=== PATIENT | male | born 1935 | race Asian ===

== ENCOUNTER 2017-08-09 20:22 | Emergency (ER) | payer OTHER, MEDICARE ==
[2017-08-09 21:00] LABS: % BASOPHILS 1.2 % (0.0-2.0); % EOSINOPHILS 5.5 % (0.0-5.0); % LYMPHOCYTES 26.8 % (20.0-50.0); % MONOCYTES 3.6 % (2.0-10.0); % NEUTROPHILS 62.9 % (40.0-80.0); BASOPHILE ABSOLUTE 0.1 Th/cumm (0-0.2); EOSINOPHILE ABSOLUTE 0.5 Th/cmm (0.1-0.4); HEMATOCRIT 40.4 % (41.0-60); HEMOGLOBIN 13.6 gm/dL (12-16); LYMPHOCYTE ABSOLUTE 2.2 Th/cmm (1.5-3.0); MEAN CELL VOLUME 99.7 fl (80-99); MEAN CORPUSCULAR HEMOGLOBIN 33.5 pg (27.0-31.0); MEAN CORPUSCULAR HGB CONC 33.6 pg (28.0-36.0); MEAN PLATELET VOLUME 8.5 fl; MONOCYTE ABSOLUTE 0.3 Th/cmm (0.3-1.0); NEUTROPHILE ABSOLUTE 5.1 Th/cmm (1.8-8.0); PLATELET COUNT 161 Th/cmm (150-400); RED BLOOD COUNT 4.06 Mil/cmm (3.80-5.80); RED CELL DISTRIBUTION WIDTH 14.3 % (11.5-20.0); WHITE BLOOD COUNT 8.2 Th/cmm (4.8-10.8)
[2017-08-09 21:14] LABS: CHOLESTEROL 197 mg/dL (<200); HDL -HIGH DENSITY LIPOPROTEIN 65 mg/dL (23-92); TRIGLYCERIDES 186 mg/dL (<150)
[2017-08-09] MEDS ORDERED: Sodium Chloride 0.9% 500 ML IV ONE (21:22)
--- NOTE | 2017-08-09 22:13 | ER Physician Documentation ---
DATE OF SERVICE: 08/09/2017 EMERGENCY ROOM EVALUATION AND TREATMENT This is an 82-year-old male patient who is a patient of Dr. Ndiaye, he is my friend. He works at [employer], [place]. We have been friends and we studied together in [place], but the patient was under his care. The patient has been on various medications. The is bringing the medication. The patient was going up, took diuretic pill Lasix, furosemide and he took it last night to pee. He had a bowel movement also. He had also glass of red wine yesterday and then today he again took some half a glass of red wine and then he was climbing stairs. He felt dizzy, almost blacked out. He called his . He did not hurt himself. 911 was called and the patient was brought to the Emergency Room. HISTORY OF PRESENT ILLNESS: The patient is known to have coronary artery disease. 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 I do not get the EKG as yet. She will be doing it pretty soon. The patient has heart disease. The patient had myocardial revascularization surgery. The patient's current medications include at least the one they told me included amlodipine 5 mg a day. He takes Lasix once a day, he takes pravastatin 40 mg once a day and he takes some other medications. Once I get it, I will let him know. Previous surgeries include history of transurethral resection of the prostate. 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 He had myocardial revascularization surgery for 5-vessel done on the left side of the heart. He said he had heart surgery done also. He had some cataract surgery done in the past. REVIEW OF SYSTEMS: EYES: No history of double vision, blurring, blindness. He had bilateral cataract surgery done. No history of any glaucoma. CENTRAL NERVOUS SYSTEM: No history of TIA, stroke, encephalitis, meningitis. PULMONARY: No history of pneumonia, TB, pulmonary embolism, COPD, emphysema, bronchitis. BONES AND JOINTS: No apparent complaints except for minor degenerative joint disease. ENDOCRINE: No history of diabetes mellitus. No history of hypo or hyperthyroidism, history of hypercholesterolemia is present. GI: No history of any peptic ulcer disease, inflammatory bowel disease, diarrhea or constipation. GENITOURINARY: No burning, frequency, dysuria, but he has chronic kidney disease. His creatinine is 1.5. His BUN is 20. PAST MEDICAL HISTORY: Hypertension, heart disease, hypercholesterolemia, prostate cancer. He had TURP, cataract surgery. Prostate was removed in the past. PERSONAL HISTORY: The patient is , has 2 sons, 2 daughters, one . ALLERGIES: None known. PHYSICAL EXAMINATION: VITAL SIGNS: The patient's triage nurse took the vital signs showing temperature 96.2, pulse of 51, respirations of 18, blood pressure 124/44, saturation of 100%. Height of 5 feet 5 inches, weighing 155 pounds. Vaccination is unknown. GENERAL: The patient appears to be awake, alert, oriented, not in any acute cardiorespiratory distress. Conjunctivae are pink, sclerae are white. HEENT: Normal. The patient has bilateral arcus senilis is noted, some slight colored discoloration on the cornea is noted on the left eye and slight on the right eye is noted, but his vision seems to be good. He has a cataract surgery done perhaps with lens implantation. General examination otherwise benign and negative. Peripheral pulses appears to be normal. No meningeal signs present. No evidence of any DVT, cyanosis, petechia, ecchymosis. CHEST: Clear. No rales, rhonchi, or bronchial breathing. ABDOMEN: Soft, benign and negative. Liver, spleen is not enlarged. There are no free fluid in the abdominal cavity. In the lower abdomen, there is a vertical scar of previous cholecystectomy present. Central nervous system is grossly within normal limits. heart reveals a midline CABG scar. S1, S2 are normal. Fourth heart sound is present. Second heart sound physiologically split. Third heart sound is absent. EKG is not yet done. I will look at it. CLINICAL IMPRESSION: 1. The patient had an episode of syncope, most likely the patient had hypovolemic syncope and vasovagal attack the patient might have had and perhaps the patient is taking medications like amlodipine and diuretics and took alcohol and so he must have a combination of all these factors must have given this patient the symptoms. We will check blood pressure and then I will give him some fluids. 2. The patient had vasovagal attack. 3. The patient has atherosclerotic heart disease. 4. The patient has myocardial revascularization surgery almost few years ago. 5. History of cancer of the prostate with history of radical prostatectomy done in the past. Outpatient EKG was just done showing small inferior wall nondiagnostic Q waves and anterior wall T waves are seen, inverted in V1 and V2 and slight ST elevation, so we will get the BNP level and troponin level has been ordered. Otherwise, it is within normal limits. OTHER DIAGNOSES: Includes hypercholesterolemia. The patient has had bilateral cataract surgery done, prostate cancer done. History of hypertension. The patient is a full code and allergic to penicillin was noted. JOB# [id number]
--- NOTE | 2017-08-09 22:32 | Transfer Summary ---
DATE OF TRANSFER: 08/09/2017 ADDENDUM Full code patient. The patient is an 82-year-old male patient. The patient was brought to the hospital with postural hypotension and the patient's blood pressure was 58, presyncope and immediately the blood pressure came up and the patient was brought over here. When he was brought over here, his heart rate was in 50s. The patient did not have any heart blocks. EKG did not show any myocardial infarction, some nonspecific ST-T changes were seen. We got some labs done. We got the postural blood pressure checked up also, there was no evidence of any postural hypotension detected. The patient's lab was done, which showed white count of 8.2, hemoglobin 13.6, hematocrit 40.4 and platelet count 161, eosinophil 5.5, magnesium 2.2. Troponin is 0.01. Triglycerides 186, cholesterol 197, LDL 112, HDL is 65. Postural hypotension reading was done, the lying blood pressure was 121/45 and standing blood pressure was 126/48 and the patient now sitting, is 109/55. The patient is getting IV fluids. The patient does not have any acute myocardial infarction. The patient will be discharged home in about a few minutes. IV fluids is wide open. The patient will go back to Dr. Vasquez, his physician at [facility]. I know all of them, did work over there. 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 EKG showed normal sinus rhythm and maybe old inferior wall MA, T-wave inversions in V1 and V2, but there is no myocardial infarction. In conclusion, the patient has benign postural hypotension, most likely secondary to the effect of taking diuretics prostate and taking Lopressor, taking losartan 100 mg and taking Lopressor tablet 100 mg tablets, so lots of medications, not drinking enough fluid. The patient drinking alcohol yesterday and this morning also, again gave rise to the symptoms, so the patient will be discharged for home. FINAL DIAGNOSES: 1. Vasovagal attack, postural hypotension. 2. Atherosclerotic heart disease. 3. History of myocardial revascularization surgery. 4. History of bilateral cataract surgery. 5. History of cancer of the prostate surgery done in the past. 6. Hypercholesterolemia. 7. Arcus senilis seen in the past. 8. History of dyslipidemia. The patient might need different kind of medication because the patient had LDL level elevated as well as triglyceride levels were also elevated. Magnesium level was found to be normal, 2.2. On examination, there was no evidence of any congestive heart failure. Troponin, etc. was within normal limits. So the patient is discharged. Discharge instructions were given to the patient. LDL level was high and the patient's triglycerides were 186, so the patient might need Lipitor or Crestor tablet 40 mg once a day, but he gets some aches and pains, but I would leave this to Dr. Vasquez, his own doctor. JOB# [id number]
--- NOTE | 2017-08-10 07:35 | Diagnostic Imaging Report ---
CHEST X-RAY: AP view INDICATION: Pain, enlarged heart, rule out CHF COMPARISON: None FINDINGS: There is evidence of prior median sternotomy. There is elevation of the right hemidiaphragm. Increased interstitial lung markings are noted with no focal consolidation, gross pleural effusion or evidence of francois CHF. Left basal density is likely due to superimposition of soft tissue structures. Heart size is mildly prominent. Degenerative changes of the spine are noted. There is old fracture of the left third rib possibly related to old surgery or old trauma. IMPRESSION: Left basal hazy density probably related to superimposition of soft tissue structures. No focal consolidation identified. If indicated, lateral views may also be obtained for further assessment. Increased interstitial lung markings likely chronic in etiology. Evidence of prior median sternotomy Mild cardiomegaly.
== END 2017-08-09 22:07 | disposition home or self-care (01) ==
LOC: ER 20:22
DX: R55 Syncope and collapse (principal); I25.10 Atherosclerotic heart disease of native coronary artery without angina pectoris; E78.5 Hyperlipidemia, unspecified
CPT/HCPCS: 99285; 93005; 71045; 84484; 83880; 36415; 84443; 84153; 86141; 85025; 83735; 80061; 84439; J7040